=== PATIENT | male | born 1970 | race Caucasian/White ===

== ENCOUNTER 2017-04-09 17:41 | Inpatient (IN) | payer OTHER ==
[2017-04-09 18:22] VITALS: BMI 21.2
--- NOTE | 2017-04-09 21:21 | HP ---
<Olga Tang - Last Filed: 04/10/17 02:14> COWS - Scale Resting Pulse: 0= [place] 80 or Below Sweatin=Flushed/Facial Moisture Restless Observation: 1= Difficult to Sit Still Pupil Size: 1= Pupils >than Normal Bone or Joint Aches: 2= Severe Diffuse Aches Runny Nose/ Eye Tearin= Runny Nose/Eyes GI Upset > 30mins: 2= Nausea/Diarrhea (Diarrhea x 7) Tremor Observation: 2= Slight Tremor Visible Yawning Observation: 1= 1-2x During Session Anxiety or Irritability: 2=Irritable/Anxious Goose Flesh Skin: 3=Piloerection COWS Score: 18 Admission ROS S - HPI Chief Complaint: Opioid withdrawal symptoms Allergies/Adverse Reactions: Allergies Allergy/AdvReac Type Severity Reaction Status Date / Time Fish Containing Products Allergy Intermediate Hives Verified 04/09/17 22:49 No Known Drug Allergies Allergy Verified 04/10/17 12:05 History of Present Illness: 46 years old male with a long history of heroin and cocaine dependence is admitted to detox. Patient has been in previous detox and reports 12 months of sobriety. Patient was referred and court mandated by CASES. He has a medical history of Hep C, anxiety, depression and PTSD. He appears very dehydrated with poor skin turgor and mucous membrane. Patient reports very poor appetite and significant weight loss. Denies suicidal ideation at this time. Exam Limitations: No Limitations - Ebola screening Have you traveled outside of the country in the last 21 days: No Have you had contact with anyone from an Ebola affected area: No Have you been sick,other than usual withdrawal symptoms: No Do you have a fever: No - Review of Systems Constitutional: Chills, Loss of Appetite, Malaise, Night Sweats, Changes in sleep, Weakness, Unintentional Wgt. Loss, Other EENT: reports: Blurred Vision, Sinus Pressure Respiratory: reports: Cough Cardiac: reports: No Symptoms Reported GI: reports: Diarrhea (x 7), Poor Appetite, Poor Fluid Intake, Abdominal cramping : reports: No Symptoms Reported Musculoskeletal: reports: Back Pain, Joint Pain, Muscle Pain, Muscle Weakness, Neck Pain Integumentary: reports: Bruising, Dryness, Flushing, Sweating Neuro: reports: Tingling, Tremors, Weakness Endocrine: reports: Flushing, Unexplained Weight Loss Hematology: reports: No Symptoms Reported Psychiatric: reports: Agitated, Anxious, Depressed Other Systems: Reviewed and Negative Patient History - Patient Medical History Hx Anemia: No Hx Asthma: No Hx Chronic Obstructive Pulmonary Disease (COPD): No Hx Cancer: No Hx Cardiac Disorders: No Hx Congestive Heart Failure: No Hx Hypertension: No Hx Hypercholesterolemia: No Hx Pacemaker: No HX Cerebrovascular Accident: No Hx Seizures: No Hx Dementia: No Hx Diabetes: No Hx Gastrointestinal Disorders: No Hx Liver Disease: Yes (Hep C treated) Hx Genitourinary Disorders: No Hx Sexually Transmitted Disorders: No Hx Renal Disease (ESRD): No Hx Thyroid Disease: No Hx Human Immunodeficiency Virus (HIV): No Hx Hepatitis C: Yes (Treated with Harvoni) Hx Depression: Yes Hx Suicide Attempt: No (Denies suicidal ideation) Hx Bipolar Disorder: No Hx Schizophrenia: No - Patient Surgical History Past Surgical History: Yes Hx Neurologic Surgery: No Hx Cataract Extraction: No Hx Cardiac Surgery: No Hx Lung Surgery: No Hx Abdominal Surgery: No Hx Appendectomy: No Hx Cholecystectomy: No Hx Genitourinary Surgery: No Hx Orthopedic Surgery: Yes (Right femur surgery) Other Surgical History: Left thigh skin graft Anesthesia Reaction: No - PPD History Previous Implant?: Yes ([facility]) Documented Results: Negative w/o proof Implanted On Prior [facility] Admission?: No PPD to be Administered?: Yes - Reproductive History Patient is a Female of Child Bearing Age (11 -55 yrs old): No (Male) - Smoking Cessation Smoking history: Current every day smoker Have you smoked in the past 12 months: Yes Aproximately how many cigarettes per day: 10 Hx Chewing Tobacco Use: No Initiated information on smoking cessation: Yes 'Breaking Loose' booklet given: 04/09/17 - Substance & Tx. History Hx Alcohol Use: No Hx Substance Use: Yes Substance Use Type: Cocaine, Heroin, Marijuana Hx Substance Use Treatment: Yes ([facility]) - Substances Abused Heroin Route: Injection Frequency: Daily Amount used: 10 bags daily Age of first use: 30 Date of Last Use: 04/08/17 Cocaine Route: Injection Frequency: Daily Amount used: $100 Age of first use: 13 Date of Last Use: 04/08/17 Marijuana/Hashish Route: Smoking Frequency: Daily Amount used: $10 Age of first use: 8 Date of Last Use: 04/08/17 Family Disease History - Family Disease History Family History: Denies Admission Physical Exam [facility] - Vital Signs Vital Signs: Vital Signs - 24 hr 04/09/17 18:10 Temperature 96.8 F L Pulse Rate 66 Respiratory 18 Rate Blood Pressure 130/90 - Physical General Appearance: Yes: Moderate Distress, Tremorous, Irritable, Sweating, Anxious HEENTM: Yes: EOMI, Normal Voice, DIDI Neck: Yes: No masses,lesions,Nodules, Supple, Trachea in good position Breast: Yes: Breast Exam Deferred Cardiology: Yes: Regular Rhythm, Regular Rate, S1, S2 Abdominal: Yes: Normal Bowel Sounds, Soft Genitourinary: Yes: Within Normal Limits Back: Yes: Within Normal Limits Musculoskeletal: Yes: Back pain, Muscle Pain, Muscle weakness Extremities: Yes: Tremors, Swelling (right hand from intravenous drug use, not infected) Neurological: Yes: Alert, Normal Mood/Affect, Normal Response Integumentary: Yes: Within Normal Limits, Track [place] (both hands and right neck ) Lymphatic: Yes: Within Normal Limits - Diagnostic (1) Opioid dependence with withdrawal Current Visit: Yes Status: Chronic (2) Cannabis dependence Current Visit: Yes Status: Chronic (3) Cocaine dependence Current Visit: Yes Status: Chronic (4) Anxiety Current Visit: Yes Status: Chronic (5) Nicotine dependence Current Visit: Yes Status: Chronic Cleared for Admission [facility] - Detox or Rehab [facility] Level of Care: Medically Managed Detox Regimen/Protocol: Methadone [facility] Breath Alcohol Content Breath Alcohol Content: 0 Urine Drug Screen - Results Drug Screen Negative: No Urine Drug Screen Results: THC-Marijuana, RUTHANN-Cocaine, OPI-Opiates <Karel Whitfield - Last Filed: 04/10/17 13:47> Admission Physical Exam [facility] - Vital Signs Vital Signs: Vital Signs - 24 hr 04/09/17 04/09/17 04/10/17 18:10 23:58 00:30 Temperature 96.8 F L 98.1 F Pulse Rate 66 64 Respiratory 18 18 18 Rate Blood Pressure 130/90 138/90 04/10/17 04/10/17 04/10/17 03:30 06:00 10:08 Temperature 97.2 F L 98.0 F Pulse Rate 61 92 H Respiratory 18 18 18 Rate Blood Pressure 108/53 147/82 - Diagnostic (1) Hepatitis C Current Visit: Yes Status: Acute (2) Depression Current Visit: Yes Status: Acute
[2017-04-09] MEDS ORDERED: guaiFENesin/D-METHORPHAN HB 10 ML UNIT-DOSE CUPS PO PRN (21:49)
[2017-04-09] MEDS ORDERED: METHADONE HCL 10 MG TABLET (FOR DETOX USE ONLY) PO ONE ×2 (21:49→23:00)
[2017-04-09] MEDS ORDERED: MENTHOL/PHENOL 1 EACH UD MM PRN (21:49)
[2017-04-09] MEDS ORDERED: ACETAMINOPHEN 325 MG TABLET (FP) PO PRN (21:49)
[2017-04-09] MEDS ORDERED: MAG HYDROX/AL HYDROX/SIMETH 30 ML UNIT-DOSE CUP PO PRN (21:49)
[2017-04-09] MEDS ORDERED: MAGNESIUM HYDROX 2400MG/30ML ORAL SUSPENSION 30 ML CUP PO PRN (21:49)
[2017-04-09] MEDS ORDERED: P-EPHED 60MG/TRIPROLIDI 2.5MG TABLET PO PRN (21:49)
[2017-04-09] MEDS ORDERED: LOPERAMIDE HCL 2 MG CAPSULE PO PRN (21:49)
[2017-04-09] MEDS ORDERED: MAGNESIUM CITRATE 300 ML BOTTLE PO PRN (21:49)
[2017-04-09] MEDS ORDERED: NICOTINE POLACRILEX 2 MG GUM BUC PRN (21:49)
[2017-04-09] MEDS: diazePAM 5 MG TABLET PO PRN (23:31)
[2017-04-09] MEDS: THIAMINE HCL 100 MG TABLET (FP) PO SCH (23:37)
[2017-04-10 01:57] LABS: URINE APPEARANCE CLEAR; URINE BILIRUBIN NEGATIVE (NEGATIVE); URINE BLOOD NEGATIVE (NEGATIVE); URINE COLOR YELLOW; URINE GLUCOSE (UA) NEGATIVE (NEGATIVE); URINE KETONE NEGATIVE (NEGATIVE); URINE LEUK ESTERASE NEGATIVE (NEGATIVE); URINE NITRITE NEGATIVE (NEGATIVE); URINE PROTEIN NEGATIVE (NEGATIVE)
[2017-04-10] MEDS: diazePAM 5 MG TABLET PO PRN ×3 (07:27→22:13)
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
[2017-04-10] MEDS ORDERED: METHADONE HCL 10 MG TABLET (FOR DETOX USE ONLY) PO ONE (10:00)
[2017-04-10 10:14] LABS: MCH 28.3 pg (25.7-33.7); MCHC 32.4 g/dl (32.0-35.9); MEAN CELL VOLUME 87.3 fl (80-96); MEAN PLT VOLUME 8.6 fl (7.5-11.1); PLATELET COUNT 257 K/MM3 (134-434); RDW 16.3 % (11.9-15.9); WHITE BLOOD COUNT 10.4 K/mm3 (4.0-10.0)
[2017-04-10 10:31] LABS: ALBUMIN 3.3 g/dl (3.4-5.0); ALK PHOS 126 U/L (45-117); ANION GAP 10 (8-16); BILIRUBIN,TOTAL 0.6 mg/dL (0.2-1.0); CALCIUM 8.7 mg/dL (8.5-10.1); CO2 25 mmol/L (21-32); CREATININE 0.9 mg/dL (0.7-1.3); GLUCOSE,RANDOM 110 mg/dL (74-106); SGOT/AST 9 U/L (15-37); SGPT/ALT 32 U/L (12-78); TOT PROT 6.4 g/dl (6.4-8.2)
[2017-04-10] MEDS: PRENATAL VITAMINS W/ FOLIC ACID TABLET (FP) PO SCH (10:45)
[2017-04-10] MEDS: NICOTINE 14 MG/24 HOURS TOPICAL PATCH TD SCH ×2 (10:48→10:50)
[2017-04-10 10:59] LABS: URINE LEUK ESTERASE Negative (NEGATIVE)
[2017-04-10 11:42] LABS: HIV 1 & 2 AB NEGATIVE; HIV 1 AGp24 NEGATIVE
[2017-04-10] MEDS: CYCLOBENZAPRINE HCL 10 MG TABLET (FP) PO PRN ×2 (11:53→22:15)
--- NOTE | 2017-04-10 11:53 | PN ---
BHS COWS - Scale Resting Pulse: 1= [place] 81-100 Sweatin=Flushed/Facial Moisture Restless Observation: 1= Difficult to Sit Still Pupil Size: 0= Normal to Room Light Bone or Joint Aches: 2= Severe Diffuse Aches Runny Nose/ Eye Tearin= Runny Nose/Eyes GI Upset > 30mins: 2= Nausea/Diarrhea Tremor Observation of Outstretched Hands: 2= Slight Tremor Visible Yawning Observation: 2= >3x During Session Anxiety or Irritability: 2=Irritable/Anxious Goose Flesh Skin: 3=Piloerection COWS Score: 19 BHS Progress Note (SOAP) Subjective: irritable agitation restless sweats shakes body aches interrupted sleep Objective: 04/10/17 11:52 Vital Signs Temperature 98.0 F 04/10/17 10:08 Pulse Rate 92 H 04/10/17 10:08 Respiratory Rate 18 04/10/17 10:08 Blood Pressure 147/82 04/10/17 10:08 O2 Sat by Pulse Oximetry (%) Laboratory Tests 04/09/17 04/10/17 04/10/17 23:25 07:00 07:00 WBC 10.4 H RBC 5.13 Hgb 14.5 Hct 44.8 MCV 87.3 MCH 28.3 MCHC 32.4 RDW 16.3 H Plt Count 257 MPV 8.6 Sodium 142 Potassium 3.8 Chloride 107 Carbon Dioxide 25 Anion Gap 10 BUN 19 H Creatinine 0.9 Creat Clearance w eGFR > 60 Random Glucose 110 H Calcium 8.7 Total Bilirubin 0.6 AST 9 L ALT 32 Alkaline Phosphatase 126 H Total Protein 6.4 Albumin 3.3 L Urine Color Yellow Urine Appearance Clear Urine pH 6.0 Ur Specific [place] 1.017 Urine Protein Negative Urine Glucose (UA) Negative Urine Ketones Negative Urine Blood Negative Urine Nitrite Negative Urine Bilirubin Negative Urine Urobilinogen 2.0 Ur Leukocyte Esterase Negative RPR Titer HIV 1&2 Antibody Screen HIV P24 Antigen 04/10/17 04/10/17 07:00 07:00 WBC RBC Hgb Hct MCV MCH MCHC RDW Plt Count MPV Sodium Potassium Chloride Carbon Dioxide Anion Gap BUN Creatinine Creat Clearance w eGFR Random Glucose Calcium Total Bilirubin AST ALT Alkaline Phosphatase Total Protein Albumin Urine Color Urine Appearance Urine pH Ur Specific [place] Urine Protein Urine Glucose (UA) Urine Ketones Urine Blood Urine Nitrite Urine Bilirubin Urine Urobilinogen Ur Leukocyte Esterase RPR Titer Nonreactive HIV 1&2 Antibody Screen Negative HIV P24 Antigen Negative aaox3 ambulating no acute distress Assessment: 04/10/17 11:52 withdrawal sx Plan: continue detox increase fluids flexiril prn clonidine 0.1mg x one
[2017-04-10] MEDS ORDERED: PNEUMOCOCCAL 23 VACCINE 0.5 ML VIAL IM ONE (12:00)
[2017-04-10] MEDS ORDERED: PNEUMOC 13-VAL CONJ-DIP CRM/PF 0.5 ML DISP.SYRIN IM ONE (12:00)
[2017-04-10] MEDS ORDERED: cloNIDine HCL 0.1 MG TABLET PO ONE (12:30)
--- NOTE | 2017-04-10 13:58 | EKG ---
Test Reason : Blood Pressure : / mmHG Vent. Rate : 059 BPM Atrial Rate : 059 BPM P-R Int : 150 ms QRS Dur : 104 ms QT Int : 410 ms P-R-T Axes : 054 029 046 degrees QTc Int : 405 ms SINUS BRADYCARDIA WITH MARKED SINUS ARRHYTHMIA POSSIBLE LEFT ATRIAL ENLARGEMENT INCOMPLETE RIGHT BUNDLE BRANCH BLOCK NO PREVIOUS ECGS AVAILABLE Confirmed by CEASAR TO MD ([id number]) on 04/10/2017 1:58:13 PM Referred By: Confirmed By:CEASAR TO MD
[2017-04-10] MEDS: MIRTAZAPINE 15 MG TABLET (FP) PO SCH (22:13)
[2017-04-10] MEDS: THIAMINE HCL 100 MG TABLET (FP) PO SCH (22:13)
[2017-04-11] MEDS ORDERED: METHADONE HCL 5 MG TABLET (FOR DETOX USE ONLY) PO ONE (10:00)
[2017-04-11] MEDS: PRENATAL VITAMINS W/ FOLIC ACID TABLET (FP) PO SCH (10:10)
[2017-04-11] MEDS: NICOTINE 14 MG/24 HOURS TOPICAL PATCH TD SCH (10:10)
[2017-04-11] MEDS: diazePAM 5 MG TABLET PO PRN ×2 (17:35→22:00)
[2017-04-11] MEDS: CYCLOBENZAPRINE HCL 10 MG TABLET (FP) PO PRN (17:35)
--- NOTE | 2017-04-11 18:54 | PN ---
BHS COWS - Scale Resting Pulse: 1= [place] 81-100 Sweatin=Flushed/Facial Moisture Restless Observation: 1= Difficult to Sit Still Pupil Size: 0= Normal to Room Light Bone or Joint Aches: 2= Severe Diffuse Aches Runny Nose/ Eye Tearin= Runny Nose/Eyes GI Upset > 30mins: 2= Nausea/Diarrhea Tremor Observation of Outstretched Hands: 2= Slight Tremor Visible Yawning Observation: 1= 1-2x During Session Anxiety or Irritability: 2=Irritable/Anxious Goose Flesh Skin: 0=Smooth Skin COWS Score: 15 S Progress Note (SOAP) Subjective: Sweating,interrupted sleep,restless Objective: 04/11/17 18:54 Vital Signs - 8 hr 04/11/17 15:37 Temperature 97.9 F Pulse Rate 100 H Respiratory 20 Rate Blood Pressure 131/85 Laboratory Tests 04/09/17 04/10/17 04/10/17 23:25 07:00 07:00 WBC 10.4 H RBC 5.13 Hgb 14.5 Hct 44.8 MCV 87.3 MCH 28.3 MCHC 32.4 RDW 16.3 H Plt Count 257 MPV 8.6 Sodium 142 Potassium 3.8 Chloride 107 Carbon Dioxide 25 Anion Gap 10 BUN 19 H Creatinine 0.9 Creat Clearance w eGFR > 60 Random Glucose 110 H Calcium 8.7 Total Bilirubin 0.6 AST 9 L ALT 32 Alkaline Phosphatase 126 H Total Protein 6.4 Albumin 3.3 L Urine Color Yellow Urine Appearance Clear Urine pH 6.0 Ur Specific [place] 1.017 Urine Protein Negative Urine Glucose (UA) Negative Urine Ketones Negative Urine Blood Negative Urine Nitrite Negative Urine Bilirubin Negative Urine Urobilinogen 2.0 Ur Leukocyte Esterase Negative RPR Titer HIV 1&2 Antibody Screen HIV P24 Antigen 04/10/17 04/10/17 07:00 07:00 WBC RBC Hgb Hct MCV MCH MCHC RDW Plt Count MPV Sodium Potassium Chloride Carbon Dioxide Anion Gap BUN Creatinine Creat Clearance w eGFR Random Glucose Calcium Total Bilirubin AST ALT Alkaline Phosphatase Total Protein Albumin Urine Color Urine Appearance Urine pH Ur Specific [place] Urine Protein Urine Glucose (UA) Urine Ketones Urine Blood Urine Nitrite Urine Bilirubin Urine Urobilinogen Ur Leukocyte Esterase RPR Titer Nonreactive HIV 1&2 Antibody Screen Negative HIV P24 Antigen Negative labs noted Assessment: 12/23/17 18:54 Withdrawal sx. Plan: Continue detox
[2017-04-11] MEDS: THIAMINE HCL 100 MG TABLET (FP) PO SCH (22:00)
[2017-04-11] MEDS: MIRTAZAPINE 15 MG TABLET (FP) PO SCH (22:00)
[2017-04-12] MEDS: diazePAM 5 MG TABLET PO PRN ×3 (06:04→14:41)
[2017-04-12] MEDS: CYCLOBENZAPRINE HCL 10 MG TABLET (FP) PO PRN ×4 (06:04→22:07)
[2017-04-12] MEDS ORDERED: METHADONE HCL 5 MG TABLET (FOR DETOX USE ONLY) PO ONE (10:00)
--- NOTE | 2017-04-12 10:13 | PN ---
BHS Progress Note (SOAP) Subjective: Sweating,interrupted sleep,restless Objective: 04/12/17 10:12 Vital Signs - 8 hr 04/12/17 04/12/17 03:30 06:59 Temperature 96.3 F L Pulse Rate 75 Respiratory 18 18 Rate Blood Pressure 119/79 Laboratory Tests 04/09/17 04/10/17 04/10/17 23:25 07:00 07:00 WBC 10.4 H RBC 5.13 Hgb 14.5 Hct 44.8 MCV 87.3 MCH 28.3 MCHC 32.4 RDW 16.3 H Plt Count 257 MPV 8.6 Sodium 142 Potassium 3.8 Chloride 107 Carbon Dioxide 25 Anion Gap 10 BUN 19 H Creatinine 0.9 Creat Clearance w eGFR > 60 Random Glucose 110 H Calcium 8.7 Total Bilirubin 0.6 AST 9 L ALT 32 Alkaline Phosphatase 126 H Total Protein 6.4 Albumin 3.3 L Urine Color Yellow Urine Appearance Clear Urine pH 6.0 Ur Specific [place] 1.017 Urine Protein Negative Urine Glucose (UA) Negative Urine Ketones Negative Urine Blood Negative Urine Nitrite Negative Urine Bilirubin Negative Urine Urobilinogen 2.0 Ur Leukocyte Esterase Negative RPR Titer HIV 1&2 Antibody Screen HIV P24 Antigen 04/10/17 04/10/17 07:00 07:00 WBC RBC Hgb Hct MCV MCH MCHC RDW Plt Count MPV Sodium Potassium Chloride Carbon Dioxide Anion Gap BUN Creatinine Creat Clearance w eGFR Random Glucose Calcium Total Bilirubin AST ALT Alkaline Phosphatase Total Protein Albumin Urine Color Urine Appearance Urine pH Ur Specific [place] Urine Protein Urine Glucose (UA) Urine Ketones Urine Blood Urine Nitrite Urine Bilirubin Urine Urobilinogen Ur Leukocyte Esterase RPR Titer Nonreactive HIV 1&2 Antibody Screen Negative HIV P24 Antigen Negative labs noted Assessment: 04/12/17 10:12 Withdrawal sx. Plan: Continue detox
[2017-04-12] MEDS ORDERED: AMOX TR/POT CLAV 875MG/125MG TABLETS (FP) PO ONE (11:41)
[2017-04-12] MEDS: PRENATAL VITAMINS W/ FOLIC ACID TABLET (FP) PO SCH (11:48)
[2017-04-12] MEDS: NICOTINE 14 MG/24 HOURS TOPICAL PATCH TD SCH (11:49)
[2017-04-12] MEDS: BACITRACIN 15 GM TUBE TOPICAL OINTMENT TP SCH ×3 (14:41→22:37)
[2017-04-12] MEDS: AMOX TR/POT CLAV 875MG/125MG TABLETS (FP) PO SCH (17:09)
--- NOTE | 2017-04-12 17:16 | EKG ---
Test Reason : Blood Pressure : / mmHG Vent. Rate : 071 BPM Atrial Rate : 071 BPM P-R Int : 140 ms QRS Dur : 100 ms QT Int : 376 ms P-R-T Axes : 052 -06 053 degrees QTc Int : 408 ms NORMAL SINUS RHYTHM INCOMPLETE RIGHT BUNDLE BRANCH BLOCK BORDERLINE ECG WHEN COMPARED WITH ECG OF 09-APR-2017 23:40, NO SIGNIFICANT CHANGE WAS FOUND Confirmed by BINTA VILLAR MD ([id number]) on 04/12/2017 5:16:03 PM Referred By: Confirmed By:BINTA VILLAR MD
[2017-04-12] MEDS: MIRTAZAPINE 15 MG TABLET (FP) PO SCH (22:07)
[2017-04-12] MEDS: THIAMINE HCL 100 MG TABLET (FP) PO SCH (22:07)
[2017-04-13] MEDS: CYCLOBENZAPRINE HCL 10 MG TABLET (FP) PO PRN ×3 (05:39→22:06)
[2017-04-13] MEDS: AMOX TR/POT CLAV 875MG/125MG TABLETS (FP) PO SCH ×2 (08:06→18:13)
--- NOTE | 2017-04-13 09:43 | PN ---
BHS Progress Note (SOAP) Subjective: interrupted sleep, anxious Objective: 04/13/17 09:38 Vital Signs Temperature 97.8 F 04/13/17 09:33 Pulse Rate 101 H 04/13/17 09:33 Respiratory Rate 20 04/13/17 09:33 Blood Pressure 111/76 04/13/17 09:33 O2 Sat by Pulse Oximetry (%) Laboratory Tests 04/09/17 04/10/17 04/10/17 23:25 07:00 07:00 WBC 10.4 H RBC 5.13 Hgb 14.5 Hct 44.8 MCV 87.3 MCH 28.3 MCHC 32.4 RDW 16.3 H Plt Count 257 MPV 8.6 Sodium 142 Potassium 3.8 Chloride 107 Carbon Dioxide 25 Anion Gap 10 BUN 19 H Creatinine 0.9 Creat Clearance w eGFR > 60 Random Glucose 110 H Calcium 8.7 Total Bilirubin 0.6 AST 9 L ALT 32 Alkaline Phosphatase 126 H Total Protein 6.4 Albumin 3.3 L Urine Color Yellow Urine Appearance Clear Urine pH 6.0 Ur Specific [place] 1.017 Urine Protein Negative Urine Glucose (UA) Negative Urine Ketones Negative Urine Blood Negative Urine Nitrite Negative Urine Bilirubin Negative Urine Urobilinogen 2.0 Ur Leukocyte Esterase Negative RPR Titer HIV 1&2 Antibody Screen HIV P24 Antigen 04/10/17 04/10/17 07:00 07:00 WBC RBC Hgb Hct MCV MCH MCHC RDW Plt Count MPV Sodium Potassium Chloride Carbon Dioxide Anion Gap BUN Creatinine Creat Clearance w eGFR Random Glucose Calcium Total Bilirubin AST ALT Alkaline Phosphatase Total Protein Albumin Urine Color Urine Appearance Urine pH Ur Specific [place] Urine Protein Urine Glucose (UA) Urine Ketones Urine Blood Urine Nitrite Urine Bilirubin Urine Urobilinogen Ur Leukocyte Esterase RPR Titer Nonreactive HIV 1&2 Antibody Screen Negative HIV P24 Antigen Negative pt aox3 in nad. ambulating, 04/13/17 09:41 Assessment: 04/13/17 09:41 withdrawal sx,s anxious Plan: cont. detox increase fluids cont .flexeril vistaril 25mg q 4h/prn d/c in am
[2017-04-13] MEDS ORDERED: METHADONE HCL 10 MG TABLET (FOR DETOX USE ONLY) PO ONE (10:00)
[2017-04-13] MEDS: PRENATAL VITAMINS W/ FOLIC ACID TABLET (FP) PO SCH (10:11)
[2017-04-13] MEDS: BACITRACIN 15 GM TUBE TOPICAL OINTMENT TP SCH ×4 (10:14→22:06)
[2017-04-13] MEDS ORDERED: BACITRACIN 0.9 GM PACKET ONE (10:14)
[2017-04-13] MEDS: NICOTINE 14 MG/24 HOURS TOPICAL PATCH TD SCH (10:15)
[2017-04-13] MEDS: IBUPROFEN 400 MG TABLET (FP) PO PRN ×2 (13:15→22:07)
[2017-04-13] MEDS: MIRTAZAPINE 15 MG TABLET (FP) PO SCH (22:07)
[2017-04-13] MEDS: hydrOXYzine PAMOATE 25 MG CAPSULE (FP) PO PRN (22:08)
[2017-04-13] MEDS: THIAMINE HCL 100 MG TABLET (FP) PO SCH (22:08)
[2017-04-14] MEDS: CYCLOBENZAPRINE HCL 10 MG TABLET (FP) PO PRN (05:33)
[2017-04-14] MEDS: hydrOXYzine PAMOATE 25 MG CAPSULE (FP) PO PRN ×2 (05:33→10:41)
[2017-04-14] MEDS ORDERED: METHADONE HCL 5 MG TABLET (FOR DETOX USE ONLY) PO ONE (06:00)
[2017-04-14] MEDS: AMOX TR/POT CLAV 875MG/125MG TABLETS (FP) PO SCH (08:22)
[2017-04-14] MEDS: PRENATAL VITAMINS W/ FOLIC ACID TABLET (FP) PO SCH (10:02)
[2017-04-14] MEDS: NICOTINE 14 MG/24 HOURS TOPICAL PATCH TD SCH (10:04)
[2017-04-14] MEDS ORDERED: BACITRACIN 0.9 GM PACKET ONE (10:06)
[2017-04-14] MEDS: BACITRACIN 15 GM TUBE TOPICAL OINTMENT TP SCH (10:06)
[2017-04-14 11:12] VITALS: BP 100/67; PULSE 96; TEMP 97.7
--- NOTE | 2017-04-14 16:06 | DS ---
[facility] Detox Discharge Summary Admission Date: 04/09/17 Discharge Date: 04/14/17 - History Present History: Cannabis Dependence, Cocaine Dependence, Opioid Dependence Pertinent Past History: Hepatitis C - Physical Exam Results Vital Signs: Vital Signs Temperature 97.7 F 04/14/17 11:11 Pulse Rate 96 H 04/14/17 11:11 Respiratory Rate 20 04/14/17 11:11 Blood Pressure 100/67 04/14/17 11:11 O2 Sat by Pulse Oximetry (%) Pertinent Admission Physical Exam Findings: Withdrawal symptoms Laboratory Tests 04/09/17 04/10/17 04/10/17 23:25 07:00 07:00 WBC 10.4 H RBC 5.13 Hgb 14.5 Hct 44.8 MCV 87.3 MCH 28.3 MCHC 32.4 RDW 16.3 H Plt Count 257 MPV 8.6 Sodium 142 Potassium 3.8 Chloride 107 Carbon Dioxide 25 Anion Gap 10 BUN 19 H Creatinine 0.9 Creat Clearance w eGFR > 60 Random Glucose 110 H Calcium 8.7 Total Bilirubin 0.6 AST 9 L ALT 32 Alkaline Phosphatase 126 H Total Protein 6.4 Albumin 3.3 L Urine Color Yellow Urine Appearance Clear Urine pH 6.0 Ur Specific [place] 1.017 Urine Protein Negative Urine Glucose (UA) Negative Urine Ketones Negative Urine Blood Negative Urine Nitrite Negative Urine Bilirubin Negative Urine Urobilinogen 2.0 Ur Leukocyte Esterase Negative RPR Titer HIV 1&2 Antibody Screen HIV P24 Antigen 04/10/17 04/10/17 07:00 07:00 WBC RBC Hgb Hct MCV MCH MCHC RDW Plt Count MPV Sodium Potassium Chloride Carbon Dioxide Anion Gap BUN Creatinine Creat Clearance w eGFR Random Glucose Calcium Total Bilirubin AST ALT Alkaline Phosphatase Total Protein Albumin Urine Color Urine Appearance Urine pH Ur Specific [place] Urine Protein Urine Glucose (UA) Urine Ketones Urine Blood Urine Nitrite Urine Bilirubin Urine Urobilinogen Ur Leukocyte Esterase RPR Titer Nonreactive HIV 1&2 Antibody Screen Negative HIV P24 Antigen Negative Labs noted - Treatment Hospital Course: Detox Protocol Followed, Detoxed Safely, Responded well, Discharged Condition Good - Medication Discharge Medications: Ambulatory Orders NK [No Known Home Medication] 04/09/17 - Diagnosis (1) Depression Status: Chronic (2) Anxiety Status: Chronic (3) Cannabis dependence Status: Chronic (4) Cocaine dependence Status: Chronic Qualifiers: Substance use status: uncomplicated Qualified Code(s): F14.20 - Cocaine dependence, uncomplicated (5) Hepatitis C Status: Chronic (6) Nicotine dependence Status: Chronic Qualifiers: Nicotine product type: cigarettes Substance use status: uncomplicated Qualified Code(s): F17.210 - Nicotine dependence, cigarettes, uncomplicated (7) Opioid dependence with withdrawal Status: Acute - AMA Did Patient Leave Against Medical Advice: No (F/U with PCP within 1 week)
== END 2017-04-14 12:30 | disposition home or self-care (01) | DRG 773 ==
LOC: YASAS 17:41 → Y6N 22:47
PROVIDERS: ADMIT Internal Medicine; ATTEND Internal Medicine
PROC: HZ2ZZZZ Detoxification Services for Substance Abuse Treatment (ICD-10-PCS; principal; 2017-04-09)
DX: F11.23 Opioid dependence with withdrawal (principal); F14.20 Cocaine dependence, uncomplicated; F12.20 Cannabis dependence, uncomplicated; F17.210 Nicotine dependence, cigarettes, uncomplicated; F19.24 Other psychoactive substance dependence with psychoactive substance-induced mood disorder; F41.9 Anxiety disorder, unspecified; F32.9 Major depressive disorder, single episode, unspecified; G47.00 Insomnia, unspecified; Z59.0 Homelessness
CPT/HCPCS: 36415; 80053; 81003; 85027; 86593; 87389; 90732; 93005; 93010; G0009

== ENCOUNTER 2017-04-14 12:47 | Inpatient (IN) | payer OTHER ==
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
[2017-04-14] MEDS ORDERED: LOPERAMIDE HCL 2 MG CAPSULE PO PRN (15:27)
[2017-04-14] MEDS ORDERED: ACETAMINOPHEN 325 MG TABLET (FP) PO PRN (15:27)
[2017-04-14] MEDS ORDERED: MENTHOL/PHENOL 1 EACH UD MM PRN (15:27)
[2017-04-14] MEDS ORDERED: MAGNESIUM HYDROX 2400MG/30ML ORAL SUSPENSION 30 ML CUP PO PRN (15:27)
[2017-04-14] MEDS ORDERED: MAGNESIUM CITRATE 300 ML BOTTLE PO PRN (15:27)
[2017-04-14] MEDS ORDERED: guaiFENesin/D-METHORPHAN HB 10 ML UNIT-DOSE CUPS PO PRN (15:27)
[2017-04-14] MEDS ORDERED: MAG HYDROX/AL HYDROX/SIMETH 30 ML UNIT-DOSE CUP PO PRN (15:27)
--- NOTE | 2017-04-14 15:27 | HP ---
[facility] Rehab Assess/Revision - Admission History Admitted to Rehab from: [facility] [place] Date of Admission to Rehab: 04/14/17 - Vital signs Vital Signs: VSS chart reviewed - Findings Detox History & Physical reviewed: Yes Concur with findings: Yes Inpatient Rehab Admission - Initial Determination Are CD services needed?: Yes Free of communicable disease: Yes Not in need of hospitalization: Yes - Rehab Admission Criteria Comorbidities: Yes Lacks judgement: Yes Patient is meeting Inpatient Rehab admission criteria:: Yes
[2017-04-14] MEDS: THIAMINE HCL 100 MG TABLET (FP) PO SCH (21:37)
[2017-04-14] MEDS: GABAPENTIN 100 MG CAPSULE (FP) PO SCH (21:37)
[2017-04-14] MEDS: MIRTAZAPINE 30 MG TABLET (FP) PO SCH (21:37)
[2017-04-14] MEDS: IBUPROFEN 400 MG TABLET (FP) PO PRN (21:38)
[2017-04-15] MEDS: GABAPENTIN 100 MG CAPSULE (FP) PO SCH ×3 (06:53→21:29)
[2017-04-15] MEDS: AMOX TR/POT CLAV 875MG/125MG TABLETS (FP) PO SCH ×2 (07:31→17:19)
[2017-04-15] MEDS: NICOTINE 14 MG/24 HOURS TOPICAL PATCH TD SCH (10:15)
[2017-04-15] MEDS: PRENATAL VITAMINS W/ FOLIC ACID TABLET (FP) PO SCH (10:15)
[2017-04-15] MEDS: hydrOXYzine PAMOATE 50 MG CAPSULE (FP) PO PRN ×2 (10:16→21:29)
[2017-04-15] MEDS: CYCLOBENZAPRINE HCL 5 MG TABLET PO SCH ×2 (15:00→21:29)
[2017-04-15] MEDS: MIRTAZAPINE 30 MG TABLET (FP) PO SCH (21:29)
[2017-04-15] MEDS: THIAMINE HCL 100 MG TABLET (FP) PO SCH (21:29)
[2017-04-16] MEDS: GABAPENTIN 100 MG CAPSULE (FP) PO SCH ×3 (06:10→21:28)
[2017-04-16] MEDS: CYCLOBENZAPRINE HCL 5 MG TABLET PO SCH ×3 (06:10→21:28)
[2017-04-16] MEDS: AMOX TR/POT CLAV 875MG/125MG TABLETS (FP) PO SCH ×2 (07:19→16:56)
[2017-04-16] MEDS: NICOTINE 14 MG/24 HOURS TOPICAL PATCH TD SCH (10:56)
[2017-04-16] MEDS: PRENATAL VITAMINS W/ FOLIC ACID TABLET (FP) PO SCH (10:56)
[2017-04-16] MEDS: hydrOXYzine PAMOATE 50 MG CAPSULE (FP) PO PRN (10:57)
[2017-04-16] MEDS: MIRTAZAPINE 30 MG TABLET (FP) PO SCH (21:28)
[2017-04-16] MEDS: THIAMINE HCL 100 MG TABLET (FP) PO SCH (21:28)
[2017-04-17] MEDS: GABAPENTIN 100 MG CAPSULE (FP) PO SCH (06:28)
[2017-04-17] MEDS: IBUPROFEN 400 MG TABLET (FP) PO PRN (06:28)
[2017-04-17] MEDS: CYCLOBENZAPRINE HCL 5 MG TABLET PO SCH ×3 (06:28→21:22)
[2017-04-17] MEDS: AMOX TR/POT CLAV 875MG/125MG TABLETS (FP) PO SCH ×2 (07:44→16:55)
[2017-04-17] MEDS: NICOTINE 14 MG/24 HOURS TOPICAL PATCH TD SCH (10:04)
[2017-04-17] MEDS: PRENATAL VITAMINS W/ FOLIC ACID TABLET (FP) PO SCH (10:04)
[2017-04-17] MEDS: QUEtiapine FUMARATE 25 MG TABLET (FP) PO PRN ×2 (10:26→14:14)
--- NOTE | 2017-04-17 11:06 | PN ---
Psychiatric Progress Note Vital Signs: Vital Signs Period Temp Pulse Resp BP Sys/Sánchez Pulse Ox Last 24 Hr 97.3 F 95 16-18 123/86 Date of Session: 04/17/17 Chief Complaint:: "mood swings" HPI: Patient is addressing opioid, cocaine, nicotine dependence comorbid PTSD, anciety disorder. ROS: Hep C. Current Medications: Active Medications Generic Name Dose Route Start Last Admin Trade Name Freq PRN Reason Stop Dose Admin Acetaminophen 650 mg 04/14/17 15:27 Tylenol - PO Q4H PRN FEVER OR PAIN Al Hydroxide/Mg Hydroxide 30 ml 04/14/17 15:27 Mylanta Oral Suspension - PO Q6H PRN DYSPEPSIA Amoxicillin/Clavulanate Potassium 1 tab 04/15/17 08:00 04/17/17 07:44 Augmentin - 875mg Tablet PO 04/20/17 07:59 1 tab BID@0800,1730 ROBERT Administration Cyclobenzaprine HCl 5 mg 04/15/17 14:00 04/17/17 06:28 Cyclobenzaprine Hcl PO 5 mg TID ROBERT Administration Eucalyptus/Menthol/Phenol/Sorbitol 1 each 04/14/17 15:27 Cepastat Lozenge - MM Q4H PRN SORE THROAT Gabapentin 300 mg 04/17/17 14:00 Neurontin - PO TID ROBERT Guaifenesin 10 ml 04/14/17 15:27 Robitussin Dm - PO Q6H PRN COUGH Hydroxyzine Pamoate 50 mg 04/14/17 15:27 04/16/17 10:57 Vistaril - PO 50 mg Q4H PRN Administration AGITATION Ibuprofen 400 mg 04/14/17 15:27 04/17/17 06:28 Motrin - PO 400 mg Q6H PRN Administration PAIN Loperamide HCl 4 mg 04/14/17 15:27 Imodium - PO Q6H PRN DIARRHEA Magnesium Citrate 300 ml 04/14/17 15:27 Citroma - PO Q48H PRN CONSTIPATION Magnesium Hydroxide 30 ml 04/14/17 15:27 Milk Of Magnesia - PO DAILY PRN CONSTIPATION Mirtazapine 30 mg 04/14/17 22:00 04/16/17 21:28 Remeron - PO 30 mg HS ROBERT Administration Nicotine 14 mg 04/15/17 10:00 04/17/17 10:04 Nicoderm Patch - TD 14 mg DAILY ROBERT Administration Nicotine Polacrilex 2 mg 04/14/17 15:27 Nicorette Gum - BUC Q2H PRN NICOTINE REPLACEMENT RX Multivit/Folic Acid/Iron 1 tab 04/15/17 10:00 04/17/17 10:04 Vitamins (Sjr) - PO 1 tab DAILY ROBERT Administration Pseudoephedrine/Triprolidine 1 combo 04/14/17 15:27 Actifed - PO TID PRN NASAL CONGESTION Quetiapine Fumarate 50 mg 04/17/17 22:00 Seroquel - PO HS ROBERT Quetiapine Fumarate 25 mg 04/17/17 10:11 04/17/17 10:26 Seroquel - PO 25 mg Q4H PRN Administration AGITATION Thiamine HCl 100 mg 04/14/17 22:00 04/16/17 21:28 Vitamin B1 - PO 100 mg HS ROBERT Administration Current Side Effect: No Lab tests ordered: No Lab tests reviewed: Yes Provider note:: Patient reports he feels very anxious, restless, mood swings, unable to sleep, racing thoughts and urges to leave treatment to get high, but he understands the negative consequences of his addiction,(having legal issues, his treatment is mandated by the court for stealing products from [employer]) reports that he is willing to take seroquel "even I'v gained weight". reviewed medications with the patient, side-effects /benefits discussed, will increase Gabapentin 300 mg po tid, add Seroquel 50 mg po hs and 25 mg po q 4hrs prn, psychoeducation and supportive therapy provided. Total face to face time:: 35 Mental Status Exam - Mental Status Exam Alert and Oriented to: Time, Place, Person Cognitive Function: Good Patient Appearance: Well Groomed Mood: Anxious, Irritable Affect: Mood Congruent Patient Behavior: Appropriate, Cooperative Speech Pattern: Clear, Appropriate Voice Loudness: Normal Thought Process: Intact, Goal Oriented Thought Disorder: Not Present Hallucinations: Denies Suicidal Ideation: Denies Homicidal Ideation: Denies Insight/Judgement: Fair Sleep: Fair Appetite: Fair Muscle strength/Tone: Normal Gait/Station: Normal Psychiatric Treatment Plan - Problem List (1) Opioid dependence Current Visit: Yes (2) PTSD (post-traumatic stress disorder) Current Visit: Yes (3) Anxiety disorder Current Visit: Yes (4) Cocaine dependence Current Visit: No Qualifiers: Substance use status: uncomplicated Qualified Code(s): F14.20 - Cocaine dependence, uncomplicated (5) Nicotine dependence Current Visit: No Qualifiers: Nicotine product type: cigarettes Substance use status: uncomplicated Qualified Code(s): F17.210 - Nicotine dependence, cigarettes, uncomplicated
[2017-04-17] MEDS: GABAPENTIN 300 MG CAPSULE (FP) PO SCH ×2 (14:13→21:22)
[2017-04-17] MEDS: MIRTAZAPINE 30 MG TABLET (FP) PO SCH (21:22)
[2017-04-17] MEDS: THIAMINE HCL 100 MG TABLET (FP) PO SCH (21:22)
[2017-04-17] MEDS: QUEtiapine FUMARATE 50 MG TABLET PO SCH (21:23)
[2017-04-18] MEDS: GABAPENTIN 300 MG CAPSULE (FP) PO SCH ×3 (06:01→21:25)
[2017-04-18] MEDS: CYCLOBENZAPRINE HCL 5 MG TABLET PO SCH ×3 (06:01→21:26)
[2017-04-18] MEDS: QUEtiapine FUMARATE 25 MG TABLET (FP) PO PRN ×3 (06:44→17:54)
[2017-04-18] MEDS: AMOX TR/POT CLAV 875MG/125MG TABLETS (FP) PO SCH ×2 (07:35→16:46)
[2017-04-18] MEDS: PRENATAL VITAMINS W/ FOLIC ACID TABLET (FP) PO SCH (10:00)
[2017-04-18] MEDS: NICOTINE 14 MG/24 HOURS TOPICAL PATCH TD SCH (10:01)
[2017-04-18] MEDS: BACITRACIN 15 GM TUBE TOPICAL OINTMENT TP SCH ×2 (12:06→21:26)
[2017-04-18] MEDS: IBUPROFEN 400 MG TABLET (FP) PO PRN (12:07)
[2017-04-18] MEDS: NICOTINE POLACRILEX 2 MG GUM BUC PRN (14:07)
[2017-04-18] MEDS: THIAMINE HCL 100 MG TABLET (FP) PO SCH (21:25)
[2017-04-18] MEDS: MIRTAZAPINE 30 MG TABLET (FP) PO SCH (21:25)
[2017-04-18] MEDS: QUEtiapine FUMARATE 50 MG TABLET PO SCH (21:26)
[2017-04-19] MEDS: GABAPENTIN 300 MG CAPSULE (FP) PO SCH ×3 (06:12→21:34)
[2017-04-19] MEDS: CYCLOBENZAPRINE HCL 5 MG TABLET PO SCH ×3 (06:12→21:34)
[2017-04-19] MEDS: QUEtiapine FUMARATE 25 MG TABLET (FP) PO PRN ×3 (06:13→19:35)
[2017-04-19] MEDS: AMOX TR/POT CLAV 875MG/125MG TABLETS (FP) PO SCH ×2 (07:38→17:03)
[2017-04-19] MEDS: PRENATAL VITAMINS W/ FOLIC ACID TABLET (FP) PO SCH (09:39)
[2017-04-19] MEDS: NICOTINE 14 MG/24 HOURS TOPICAL PATCH TD SCH (09:40)
[2017-04-19] MEDS: BACITRACIN 15 GM TUBE TOPICAL OINTMENT TP SCH ×2 (09:40→21:34)
[2017-04-19] MEDS: IBUPROFEN 400 MG TABLET (FP) PO PRN (09:41)
[2017-04-19] MEDS: COLLOIDAL OATMEAL 1 BAR EACH TP PRN (12:02)
[2017-04-19] MEDS: MIRTAZAPINE 30 MG TABLET (FP) PO SCH (21:34)
[2017-04-19] MEDS: QUEtiapine FUMARATE 50 MG TABLET PO SCH (21:34)
[2017-04-19] MEDS: THIAMINE HCL 100 MG TABLET (FP) PO SCH (21:34)
[2017-04-20] MEDS: GABAPENTIN 300 MG CAPSULE (FP) PO SCH ×3 (06:53→21:27)
[2017-04-20] MEDS: CYCLOBENZAPRINE HCL 5 MG TABLET PO SCH ×3 (06:53→21:27)
[2017-04-20] MEDS: QUEtiapine FUMARATE 25 MG TABLET (FP) PO PRN ×3 (06:54→16:39)
[2017-04-20] MEDS: PRENATAL VITAMINS W/ FOLIC ACID TABLET (FP) PO SCH (09:46)
[2017-04-20] MEDS: BACITRACIN 15 GM TUBE TOPICAL OINTMENT TP SCH ×2 (09:47→21:27)
[2017-04-20] MEDS: NICOTINE 14 MG/24 HOURS TOPICAL PATCH TD SCH (09:47)
[2017-04-20] MEDS: MIRTAZAPINE 30 MG TABLET (FP) PO SCH (21:27)
[2017-04-20] MEDS: THIAMINE HCL 100 MG TABLET (FP) PO SCH (21:27)
[2017-04-20] MEDS: QUEtiapine FUMARATE 50 MG TABLET PO SCH (21:27)
[2017-04-21] MEDS: GABAPENTIN 300 MG CAPSULE (FP) PO SCH ×3 (06:36→21:39)
[2017-04-21] MEDS: CYCLOBENZAPRINE HCL 5 MG TABLET PO SCH ×3 (06:36→21:39)
[2017-04-21] MEDS: BACITRACIN 15 GM TUBE TOPICAL OINTMENT TP SCH ×2 (10:10→21:40)
[2017-04-21] MEDS: PRENATAL VITAMINS W/ FOLIC ACID TABLET (FP) PO SCH (10:10)
[2017-04-21] MEDS: NICOTINE 14 MG/24 HOURS TOPICAL PATCH TD SCH (10:10)
--- NOTE | 2017-04-21 14:02 | PN ---
Psychiatric Progress Note Vital Signs: Vital Signs Period Temp Pulse Resp BP Sys/Sánchez Pulse Ox Last 24 Hr 98.0 F 95 18-18 129/87 Date of Session: 04/21/17 Chief Complaint:: progress update HPI: Patient is addressing opioid, cocaine, nicotine dependence comorbid PTSD, anxiety disorder. ROS: Hep C. Current Medications: Active Medications Generic Name Dose Route Start Last Admin Trade Name Freq PRN Reason Stop Dose Admin Acetaminophen 650 mg 04/14/17 15:27 Tylenol - PO Q4H PRN FEVER OR PAIN Al Hydroxide/Mg Hydroxide 30 ml 04/14/17 15:27 Mylanta Oral Suspension - PO Q6H PRN DYSPEPSIA Bacitracin 1 applic 04/18/17 10:00 04/21/17 10:10 Bacitracin - TP Not Given BID ROBERT Colloidal Oatmeal 1 applic 04/19/17 10:59 04/19/17 12:02 Aveeno Soap - TP 1 applic DAILY PRN Administration HYGEINE Cyclobenzaprine HCl 5 mg 04/15/17 14:00 04/21/17 06:36 Cyclobenzaprine Hcl PO Not Given TID [facility] Eucalyptus/Menthol/Phenol/Sorbitol 1 each 04/14/17 15:27 Cepastat Lozenge - MM Q4H PRN SORE THROAT Gabapentin 600 mg 04/21/17 13:56 Neurontin - PO TID ROBERT Guaifenesin 10 ml 04/14/17 15:27 Robitussin Dm - PO Q6H PRN COUGH Hydroxyzine Pamoate 50 mg 04/14/17 15:27 04/16/17 10:57 Vistaril - PO 50 mg Q4H PRN Administration AGITATION Ibuprofen 400 mg 04/14/17 15:27 04/19/17 09:41 Motrin - PO 400 mg Q6H PRN Administration PAIN Loperamide HCl 4 mg 04/14/17 15:27 Imodium - PO Q6H PRN DIARRHEA Magnesium Citrate 300 ml 04/14/17 15:27 Citroma - PO Q48H PRN CONSTIPATION Magnesium Hydroxide 30 ml 04/14/17 15:27 Milk Of Magnesia - PO DAILY PRN CONSTIPATION Mirtazapine 30 mg 04/14/17 22:00 04/20/17 21:27 Remeron - PO 30 mg HS ROBERT Administration Nicotine 14 mg 04/15/17 10:00 04/21/17 10:10 Nicoderm Patch - TD Not Given DAILY ROBERT Nicotine Polacrilex 2 mg 04/14/17 15:27 04/18/17 14:07 Nicorette Gum - BUC 2 mg Q2H PRN Administration NICOTINE REPLACEMENT RX Multivit/Folic Acid/Iron 1 tab 04/15/17 10:00 04/21/17 10:10 Vitamins (Sjr) - PO Not Given DAILY ROBERT Pseudoephedrine/Triprolidine 1 combo 04/14/17 15:27 Actifed - PO TID PRN NASAL CONGESTION Quetiapine Fumarate 25 mg 04/17/17 10:11 04/20/17 16:39 Seroquel - PO 25 mg Q4H PRN Administration AGITATION Thiamine HCl 100 mg 04/14/17 22:00 04/20/17 21:27 Vitamin B1 - PO 100 mg HS ROBERT Administration Current Side Effect: No Lab tests ordered: No Lab tests reviewed: Yes Provider note:: Patient was seen today, he continues to c/o mood swings irritablity and sleeping difficulty, states that seroquel not effective and he refused to take it for the past 2 days, reports that was on higher dosage of gabapentin in the past and thinks was effective, reviwed current medications with the patient will d/c seroquel, increase gabapentin 600 mg po tid and add belsomra 10 mg po hs, psychoeducation and support provided, contineu to monitor progress. Total face to face time:: 25 Mental Status Exam - Mental Status Exam Alert and Oriented to: Time, Place, Person Cognitive Function: Good Patient Appearance: Well Groomed Mood: Anxious, Irritable Affect: Appropriate, Mood Congruent, Labile Patient Behavior: Appropriate, Cooperative Speech Pattern: Clear, Appropriate Voice Loudness: Normal Thought Process: Intact, Goal Oriented Thought Disorder: Not Present Hallucinations: Denies Suicidal Ideation: Denies Homicidal Ideation: Denies Insight/Judgement: Fair Sleep: Poorly, Difficulty falling asleep Appetite: Fair Muscle strength/Tone: Normal Gait/Station: Normal Psychiatric Treatment Plan - Problem List (1) Opioid dependence Current Visit: Yes (2) PTSD (post-traumatic stress disorder) Current Visit: Yes (3) Anxiety disorder Current Visit: Yes (4) Cocaine dependence Current Visit: No Qualifiers: Substance use status: uncomplicated Qualified Code(s): F14.20 - Cocaine dependence, uncomplicated (5) Nicotine dependence Current Visit: No Qualifiers: Nicotine product type: cigarettes Substance use status: uncomplicated Qualified Code(s): F17.210 - Nicotine dependence, cigarettes, uncomplicated
[2017-04-21] MEDS: MIRTAZAPINE 30 MG TABLET (FP) PO SCH (21:39)
[2017-04-21] MEDS: THIAMINE HCL 100 MG TABLET (FP) PO SCH (21:39)
[2017-04-21] MEDS: SUVOREXANT 10 MG TABLET PO SCH (21:39)
[2017-04-22] MEDS: CYCLOBENZAPRINE HCL 5 MG TABLET PO SCH ×3 (06:28→21:31)
[2017-04-22] MEDS: GABAPENTIN 300 MG CAPSULE (FP) PO SCH ×3 (06:28→21:31)
[2017-04-22] MEDS: PRENATAL VITAMINS W/ FOLIC ACID TABLET (FP) PO SCH (09:44)
[2017-04-22] MEDS: NICOTINE 14 MG/24 HOURS TOPICAL PATCH TD SCH (09:44)
[2017-04-22] MEDS: BACITRACIN 15 GM TUBE TOPICAL OINTMENT TP SCH ×2 (09:45→21:32)
[2017-04-22] MEDS: IBUPROFEN 400 MG TABLET (FP) PO PRN (09:45)
[2017-04-22] MEDS: THIAMINE HCL 100 MG TABLET (FP) PO SCH (21:31)
[2017-04-22] MEDS: MIRTAZAPINE 30 MG TABLET (FP) PO SCH (21:31)
[2017-04-22] MEDS: SUVOREXANT 10 MG TABLET PO SCH (21:32)
[2017-04-23] MEDS: GABAPENTIN 300 MG CAPSULE (FP) PO SCH ×3 (06:27→21:37)
[2017-04-23] MEDS: CYCLOBENZAPRINE HCL 5 MG TABLET PO SCH ×3 (06:27→21:37)
[2017-04-23] MEDS: BACITRACIN 15 GM TUBE TOPICAL OINTMENT TP SCH ×2 (09:47→22:35)
[2017-04-23] MEDS: NICOTINE 14 MG/24 HOURS TOPICAL PATCH TD SCH (09:47)
[2017-04-23] MEDS: PRENATAL VITAMINS W/ FOLIC ACID TABLET (FP) PO SCH (09:47)
--- NOTE | 2017-04-23 10:29 | PN ---
Psychiatric Progress Note Vital Signs: Vital Signs Period Temp Pulse Resp BP Sys/Sánchez Pulse Ox Last 24 Hr 97.9 F 74 18-18 123/83 Date of Session: 04/23/17 Chief Complaint:: "can't sleep" HPI: Patient is addressing opioid, cocaine, nicotine dependence comorbid PTSD, anxiety disorder. ROS: Hep C. Current Medications: Active Medications Generic Name Dose Route Start Last Admin Trade Name Freq PRN Reason Stop Dose Admin Acetaminophen 650 mg 04/14/17 15:27 Tylenol - PO Q4H PRN FEVER OR PAIN Al Hydroxide/Mg Hydroxide 30 ml 04/14/17 15:27 Mylanta Oral Suspension - PO Q6H PRN DYSPEPSIA Amitriptyline HCl 25 mg 04/23/17 22:00 Elavil - PO HS ROBERT Bacitracin 1 applic 04/18/17 10:00 04/23/17 09:47 Bacitracin - TP Not Given BID ROBERT Colloidal Oatmeal 1 applic 04/19/17 10:59 04/19/17 12:02 Aveeno Soap - TP 1 applic DAILY PRN Administration HYGEINE Cyclobenzaprine HCl 5 mg 04/15/17 14:00 04/23/17 06:27 Cyclobenzaprine Hcl PO 5 mg TID ROBERT Administration Eucalyptus/Menthol/Phenol/Sorbitol 1 each 04/14/17 15:27 Cepastat Lozenge - MM Q4H PRN SORE THROAT Gabapentin 600 mg 04/21/17 14:57 04/23/17 06:27 Neurontin - PO 600 mg TID ROBERT Administration Guaifenesin 10 ml 04/14/17 15:27 Robitussin Dm - PO Q6H PRN COUGH Hydroxyzine Pamoate 50 mg 04/14/17 15:27 04/16/17 10:57 Vistaril - PO 50 mg Q4H PRN Administration AGITATION Ibuprofen 400 mg 04/14/17 15:27 04/22/17 09:45 Motrin - PO 400 mg Q6H PRN Administration PAIN Loperamide HCl 4 mg 04/14/17 15:27 Imodium - PO Q6H PRN DIARRHEA Magnesium Citrate 300 ml 04/14/17 15:27 Citroma - PO Q48H PRN CONSTIPATION Magnesium Hydroxide 30 ml 04/14/17 15:27 Milk Of Magnesia - PO DAILY PRN CONSTIPATION Nicotine 14 mg 04/15/17 10:00 04/23/17 09:47 Nicoderm Patch - TD 14 mg DAILY ROBERT Administration Nicotine Polacrilex 2 mg 04/14/17 15:27 04/18/17 14:07 Nicorette Gum - BUC 2 mg Q2H PRN Administration NICOTINE REPLACEMENT RX Multivit/Folic Acid/Iron 1 tab 04/15/17 10:00 04/23/17 09:47 Vitamins (Sjr) - PO 1 tab DAILY ROBERT Administration Pseudoephedrine/Triprolidine 1 combo 04/14/17 15:27 Actifed - PO TID PRN NASAL CONGESTION Quetiapine Fumarate 25 mg 04/17/17 10:11 04/20/17 16:39 Seroquel - PO 25 mg Q4H PRN Administration AGITATION Thiamine HCl 100 mg 04/14/17 22:00 04/22/17 21:31 Vitamin B1 - PO 100 mg HS ROBERT Administration Current Side Effect: No Lab tests ordered: No Lab tests reviewed: Yes Provider note:: Patient reports that Belsomra partially effective, he sleeps till 3 am and then up the rest of the night, reports had a good responce to Elavil in the past, will d/c Remeron, add Elavil 25 mg po hs, side-effects and benefits discussed. Continue to monitor progress. Total face to face time:: 15 Mental Status Exam - Mental Status Exam Alert and Oriented to: Time, Place, Person Cognitive Function: Grossly Intact Patient Appearance: Well Groomed Mood: Hopeful Affect: Appropriate Patient Behavior: Appropriate, Cooperative Speech Pattern: Clear, Appropriate Voice Loudness: Normal Thought Process: Intact, Goal Oriented Thought Disorder: Not Present Hallucinations: Denies Suicidal Ideation: Denies Homicidal Ideation: Denies Insight/Judgement: Fair Sleep: Fair Appetite: Fair Muscle strength/Tone: Normal Gait/Station: Normal Psychiatric Treatment Plan - Problem List (1) Opioid dependence Current Visit: Yes (2) PTSD (post-traumatic stress disorder) Current Visit: Yes (3) Anxiety disorder Current Visit: Yes (4) Cocaine dependence Current Visit: No Qualifiers: Substance use status: uncomplicated Qualified Code(s): F14.20 - Cocaine dependence, uncomplicated (5) Nicotine dependence Current Visit: No Qualifiers: Nicotine product type: cigarettes Substance use status: uncomplicated Qualified Code(s): F17.210 - Nicotine dependence, cigarettes, uncomplicated
[2017-04-23] MEDS: THIAMINE HCL 100 MG TABLET (FP) PO SCH (21:37)
[2017-04-23] MEDS: SUVOREXANT 10 MG TABLET PO SCH (21:38)
[2017-04-23] MEDS ORDERED: AMITRIPTYLINE HCL 25 MG TABLET (FP) PO SCH (22:00)
[2017-04-24] MEDS: CYCLOBENZAPRINE HCL 5 MG TABLET PO SCH ×3 (06:21→21:34)
[2017-04-24] MEDS: GABAPENTIN 300 MG CAPSULE (FP) PO SCH ×3 (06:21→21:34)
[2017-04-24] MEDS: BACITRACIN 15 GM TUBE TOPICAL OINTMENT TP SCH ×2 (10:04→21:34)
[2017-04-24] MEDS: NICOTINE 14 MG/24 HOURS TOPICAL PATCH TD SCH (10:04)
[2017-04-24] MEDS: PRENATAL VITAMINS W/ FOLIC ACID TABLET (FP) PO SCH (10:04)
--- NOTE | 2017-04-24 11:16 | PN ---
[facility] Progress Note Note: patient continue to c/o insomnia, reports elavil partially effective, will increase to 50 mg po hs, continue to monitor progress.
[2017-04-24] MEDS: THIAMINE HCL 100 MG TABLET (FP) PO SCH (21:34)
[2017-04-24] MEDS: AMITRIPTYLINE HCL 25 MG TABLET (FP) PO SCH (21:35)
[2017-04-24] MEDS: QUEtiapine FUMARATE 25 MG TABLET (FP) PO PRN (23:59)
[2017-04-24] MEDS: hydrOXYzine PAMOATE 50 MG CAPSULE (FP) PO PRN (23:59)
[2017-04-25] MEDS: GABAPENTIN 300 MG CAPSULE (FP) PO SCH ×3 (06:54→21:35)
[2017-04-25] MEDS: CYCLOBENZAPRINE HCL 5 MG TABLET PO SCH ×3 (06:54→21:35)
[2017-04-25] MEDS: PRENATAL VITAMINS W/ FOLIC ACID TABLET (FP) PO SCH (10:17)
[2017-04-25] MEDS: QUEtiapine FUMARATE 25 MG TABLET (FP) PO PRN ×2 (10:17→21:35)
[2017-04-25] MEDS: NICOTINE 14 MG/24 HOURS TOPICAL PATCH TD SCH (10:17)
[2017-04-25] MEDS: hydrOXYzine PAMOATE 50 MG CAPSULE (FP) PO PRN ×2 (10:17→21:35)
[2017-04-25] MEDS: BACITRACIN 15 GM TUBE TOPICAL OINTMENT TP SCH ×2 (10:17→21:35)
[2017-04-25] MEDS: IBUPROFEN 400 MG TABLET (FP) PO PRN (14:14)
[2017-04-25] MEDS: NICOTINE POLACRILEX 2 MG GUM BUC PRN (14:15)
[2017-04-25] MEDS: THIAMINE HCL 100 MG TABLET (FP) PO SCH (21:35)
[2017-04-25] MEDS: AMITRIPTYLINE HCL 25 MG TABLET (FP) PO SCH (21:35)
[2017-04-26] MEDS: GABAPENTIN 300 MG CAPSULE (FP) PO SCH ×3 (07:12→21:25)
[2017-04-26] MEDS: CYCLOBENZAPRINE HCL 5 MG TABLET PO SCH ×3 (07:12→21:26)
[2017-04-26] MEDS: hydrOXYzine PAMOATE 50 MG CAPSULE (FP) PO PRN ×2 (07:14→21:26)
[2017-04-26] MEDS: QUEtiapine FUMARATE 25 MG TABLET (FP) PO PRN ×2 (07:14→21:26)
[2017-04-26] MEDS: BACITRACIN 15 GM TUBE TOPICAL OINTMENT TP SCH ×2 (09:57→21:26)
[2017-04-26] MEDS: PRENATAL VITAMINS W/ FOLIC ACID TABLET (FP) PO SCH (09:57)
[2017-04-26] MEDS: NICOTINE 14 MG/24 HOURS TOPICAL PATCH TD SCH (09:57)
[2017-04-26] MEDS: NICOTINE POLACRILEX 2 MG GUM BUC PRN (14:37)
[2017-04-26] MEDS: THIAMINE HCL 100 MG TABLET (FP) PO SCH (21:25)
[2017-04-26] MEDS: AMITRIPTYLINE HCL 25 MG TABLET (FP) PO SCH (21:26)
[2017-04-27] MEDS: CYCLOBENZAPRINE HCL 5 MG TABLET PO SCH ×3 (06:51→21:39)
[2017-04-27] MEDS: GABAPENTIN 300 MG CAPSULE (FP) PO SCH ×3 (06:51→21:39)
[2017-04-27] MEDS: QUEtiapine FUMARATE 25 MG TABLET (FP) PO PRN ×2 (10:10→21:40)
[2017-04-27] MEDS: PRENATAL VITAMINS W/ FOLIC ACID TABLET (FP) PO SCH (10:10)
[2017-04-27] MEDS: BACITRACIN 15 GM TUBE TOPICAL OINTMENT TP SCH ×2 (10:10→21:41)
[2017-04-27] MEDS: hydrOXYzine PAMOATE 50 MG CAPSULE (FP) PO PRN ×2 (10:10→21:40)
[2017-04-27] MEDS: NICOTINE 14 MG/24 HOURS TOPICAL PATCH TD SCH (10:10)
[2017-04-27] MEDS: AMITRIPTYLINE HCL 25 MG TABLET (FP) PO SCH (21:39)
[2017-04-27] MEDS: THIAMINE HCL 100 MG TABLET (FP) PO SCH (21:41)
[2017-04-28] MEDS: CYCLOBENZAPRINE HCL 5 MG TABLET PO SCH ×3 (06:42→21:48)
[2017-04-28] MEDS: GABAPENTIN 300 MG CAPSULE (FP) PO SCH ×3 (06:42→21:48)
[2017-04-28] MEDS: NICOTINE 14 MG/24 HOURS TOPICAL PATCH TD SCH (10:05)
[2017-04-28] MEDS: PRENATAL VITAMINS W/ FOLIC ACID TABLET (FP) PO SCH (10:05)
[2017-04-28] MEDS: BACITRACIN 15 GM TUBE TOPICAL OINTMENT TP SCH ×2 (10:06→21:48)
[2017-04-28] MEDS: QUEtiapine FUMARATE 25 MG TABLET (FP) PO PRN (10:07)
[2017-04-28] MEDS: hydrOXYzine PAMOATE 50 MG CAPSULE (FP) PO PRN (10:07)
--- NOTE | 2017-04-28 11:28 | PN ---
Psychiatric Progress Note Vital Signs: Vital Signs Period Temp Pulse Resp BP Sys/Sánchez Pulse Ox Last 24 Hr 97.6 F 90 18-20 111/83 Date of Session: 04/28/17 Chief Complaint:: "anxiety" HPI: Patient is addressing opioid, cocaine, nicotine dependence comorbid PTSD, anxiety disorder. ROS: Hep C. Current Medications: Active Medications Generic Name Dose Route Start Last Admin Trade Name Freq PRN Reason Stop Dose Admin Acetaminophen 650 mg 04/14/17 15:27 Tylenol - PO Q4H PRN FEVER OR PAIN Al Hydroxide/Mg Hydroxide 30 ml 04/14/17 15:27 Mylanta Oral Suspension - PO Q6H PRN DYSPEPSIA Amitriptyline HCl 75 mg 04/28/17 11:20 Elavil - PO HS ROBERT Bacitracin 1 applic 04/18/17 10:00 04/28/17 10:06 Bacitracin - TP 1 applic BID ROBERT Administration Buspirone HCl 5 mg 04/28/17 14:00 Buspar - PO TID ROBERT Colloidal Oatmeal 1 applic 04/19/17 10:59 04/19/17 12:02 Aveeno Soap - TP 1 applic DAILY PRN Administration HYGEINE Cyclobenzaprine HCl 5 mg 04/15/17 14:00 04/28/17 06:42 Cyclobenzaprine Hcl PO 5 mg TID ROBERT Administration Eucalyptus/Menthol/Phenol/Sorbitol 1 each 04/14/17 15:27 Cepastat Lozenge - MM Q4H PRN SORE THROAT Gabapentin 600 mg 04/21/17 14:57 04/28/17 06:42 Neurontin - PO 600 mg TID ROBERT Administration Guaifenesin 10 ml 04/14/17 15:27 Robitussin Dm - PO Q6H PRN COUGH Hydroxyzine Pamoate 50 mg 04/14/17 15:27 04/28/17 10:07 Vistaril - PO 50 mg Q4H PRN Administration AGITATION Ibuprofen 400 mg 04/14/17 15:27 04/25/17 14:14 Motrin - PO 400 mg Q6H PRN Administration PAIN Loperamide HCl 4 mg 04/14/17 15:27 Imodium - PO Q6H PRN DIARRHEA Magnesium Citrate 300 ml 04/14/17 15:27 Citroma - PO Q48H PRN CONSTIPATION Magnesium Hydroxide 30 ml 04/14/17 15:27 Milk Of Magnesia - PO DAILY PRN CONSTIPATION Nicotine 14 mg 04/15/17 10:00 04/28/17 10:05 Nicoderm Patch - TD 14 mg DAILY ROBERT Administration Nicotine Polacrilex 2 mg 04/14/17 15:27 04/26/17 14:37 Nicorette Gum - BUC 2 mg Q2H PRN Administration NICOTINE REPLACEMENT RX Multivit/Folic Acid/Iron 1 tab 04/15/17 10:00 04/28/17 10:05 Vitamins (Sjr) - PO 1 tab DAILY ROBERT Administration Pseudoephedrine/Triprolidine 1 combo 04/14/17 15:27 Actifed - PO TID PRN NASAL CONGESTION Quetiapine Fumarate 25 mg 04/17/17 10:11 04/28/17 10:07 Seroquel - PO 25 mg Q4H PRN Administration AGITATION Thiamine HCl 100 mg 04/14/17 22:00 04/27/17 21:41 Vitamin B1 - PO 100 mg HS ROBERT Administration Medication(s) Change(s): increase Elavil 75 mg po hs add Buspar 5 mg po tid. Current Side Effect: No Lab tests ordered: No Lab tests reviewed: Yes Provider note:: Patient continues to c/o anxiety, insomnia, "I have a high toleratnce", reports he feels anxious all day, his sleep is interrupted and unfreshful, he reports fatiqued during day time, patient was recommended to start Buspar 5 mg po tid(side-effects/benefits discussed), patient agreed with careplan, continue to monitor progress. Total face to face time:: 15 Mental Status Exam - Mental Status Exam Alert and Oriented to: Time, Place Cognitive Function: Good Patient Appearance: Well Groomed Mood: Anxious Affect: Appropriate, Mood Congruent Patient Behavior: Appropriate, Cooperative Speech Pattern: Clear, Appropriate Voice Loudness: Normal Thought Process: Goal Oriented Thought Disorder: Not Present Hallucinations: Denies Suicidal Ideation: Denies Homicidal Ideation: Denies Insight/Judgement: Fair Sleep: Difficulty falling asleep Appetite: Fair Muscle strength/Tone: Normal Gait/Station: Normal Psychiatric Treatment Plan - Problem List (1) Opioid dependence Current Visit: Yes (2) PTSD (post-traumatic stress disorder) Current Visit: Yes (3) Anxiety disorder Current Visit: Yes (4) Cocaine dependence Current Visit: No Qualifiers: Substance use status: uncomplicated Qualified Code(s): F14.20 - Cocaine dependence, uncomplicated (5) Nicotine dependence Current Visit: No Qualifiers: Nicotine product type: cigarettes Substance use status: uncomplicated Qualified Code(s): F17.210 - Nicotine dependence, cigarettes, uncomplicated
[2017-04-28] MEDS: IBUPROFEN 400 MG TABLET (FP) PO PRN (12:25)
[2017-04-28] MEDS: busPIRone HCL 5 MG TABLET PO SCH ×2 (14:03→21:48)
[2017-04-28] MEDS: AMITRIPTYLINE HCL 25 MG TABLET (FP) PO SCH (21:48)
[2017-04-28] MEDS: THIAMINE HCL 100 MG TABLET (FP) PO SCH (21:48)
[2017-04-29] MEDS: CYCLOBENZAPRINE HCL 5 MG TABLET PO SCH ×3 (05:48→21:35)
[2017-04-29] MEDS: GABAPENTIN 300 MG CAPSULE (FP) PO SCH ×3 (05:48→21:35)
[2017-04-29] MEDS: busPIRone HCL 5 MG TABLET PO SCH ×3 (05:48→21:35)
[2017-04-29] MEDS: IBUPROFEN 400 MG TABLET (FP) PO PRN (05:50)
[2017-04-29] MEDS: PRENATAL VITAMINS W/ FOLIC ACID TABLET (FP) PO SCH (10:03)
[2017-04-29] MEDS: BACITRACIN 15 GM TUBE TOPICAL OINTMENT TP SCH ×2 (10:03→21:36)
[2017-04-29] MEDS: NICOTINE 14 MG/24 HOURS TOPICAL PATCH TD SCH (10:03)
[2017-04-29] MEDS: THIAMINE HCL 100 MG TABLET (FP) PO SCH (21:35)
[2017-04-29] MEDS: AMITRIPTYLINE HCL 25 MG TABLET (FP) PO SCH (21:35)
[2017-04-29] MEDS: P-EPHED 60MG/TRIPROLIDI 2.5MG TABLET PO PRN (21:37)
[2017-04-30] MEDS: IBUPROFEN 400 MG TABLET (FP) PO PRN (06:47)
[2017-04-30] MEDS: GABAPENTIN 300 MG CAPSULE (FP) PO SCH ×3 (06:47→21:24)
[2017-04-30] MEDS: busPIRone HCL 5 MG TABLET PO SCH ×3 (06:47→21:24)
[2017-04-30] MEDS: CYCLOBENZAPRINE HCL 5 MG TABLET PO SCH ×3 (06:47→21:24)
[2017-04-30] MEDS: P-EPHED 60MG/TRIPROLIDI 2.5MG TABLET PO PRN (06:48)
[2017-04-30] MEDS: PRENATAL VITAMINS W/ FOLIC ACID TABLET (FP) PO SCH (10:11)
[2017-04-30] MEDS: NICOTINE 14 MG/24 HOURS TOPICAL PATCH TD SCH (10:11)
[2017-04-30] MEDS: BACITRACIN 15 GM TUBE TOPICAL OINTMENT TP SCH ×2 (10:12→21:25)
[2017-04-30] MEDS: AMITRIPTYLINE HCL 25 MG TABLET (FP) PO SCH (21:23)
[2017-04-30] MEDS: hydrOXYzine PAMOATE 50 MG CAPSULE (FP) PO PRN (21:23)
[2017-04-30] MEDS: QUEtiapine FUMARATE 25 MG TABLET (FP) PO PRN (21:23)
[2017-04-30] MEDS: THIAMINE HCL 100 MG TABLET (FP) PO SCH (21:24)
[2017-05-01] MEDS: busPIRone HCL 5 MG TABLET PO SCH ×3 (06:41→21:46)
[2017-05-01] MEDS: CYCLOBENZAPRINE HCL 5 MG TABLET PO SCH ×3 (06:41→21:46)
[2017-05-01] MEDS: GABAPENTIN 300 MG CAPSULE (FP) PO SCH ×3 (06:41→21:46)
[2017-05-01] MEDS: QUEtiapine FUMARATE 25 MG TABLET (FP) PO PRN ×2 (06:42→21:46)
[2017-05-01] MEDS: hydrOXYzine PAMOATE 50 MG CAPSULE (FP) PO PRN ×2 (06:43→21:47)
[2017-05-01] MEDS: PRENATAL VITAMINS W/ FOLIC ACID TABLET (FP) PO SCH (10:05)
[2017-05-01] MEDS: NICOTINE 14 MG/24 HOURS TOPICAL PATCH TD SCH (10:05)
[2017-05-01] MEDS: BACITRACIN 15 GM TUBE TOPICAL OINTMENT TP SCH ×2 (10:05→21:46)
[2017-05-01] MEDS: IBUPROFEN 400 MG TABLET (FP) PO PRN ×2 (10:06→17:56)
[2017-05-01] MEDS: P-EPHED 60MG/TRIPROLIDI 2.5MG TABLET PO PRN (17:56)
[2017-05-01] MEDS: THIAMINE HCL 100 MG TABLET (FP) PO SCH (21:46)
[2017-05-01] MEDS: AMITRIPTYLINE HCL 25 MG TABLET (FP) PO SCH (21:46)
[2017-05-02] MEDS: P-EPHED 60MG/TRIPROLIDI 2.5MG TABLET PO PRN (07:13)
[2017-05-02] MEDS: busPIRone HCL 5 MG TABLET PO SCH ×3 (07:14→21:27)
[2017-05-02] MEDS: CYCLOBENZAPRINE HCL 5 MG TABLET PO SCH ×3 (07:14→21:27)
[2017-05-02] MEDS: GABAPENTIN 300 MG CAPSULE (FP) PO SCH ×3 (07:14→21:26)
[2017-05-02] MEDS: IBUPROFEN 400 MG TABLET (FP) PO PRN (07:14)
[2017-05-02] MEDS: NICOTINE 14 MG/24 HOURS TOPICAL PATCH TD SCH (09:55)
[2017-05-02] MEDS: PRENATAL VITAMINS W/ FOLIC ACID TABLET (FP) PO SCH (09:55)
[2017-05-02] MEDS: BACITRACIN 15 GM TUBE TOPICAL OINTMENT TP SCH ×2 (09:55→21:27)
[2017-05-02] MEDS: hydrOXYzine PAMOATE 50 MG CAPSULE (FP) PO PRN ×2 (13:22→21:26)
[2017-05-02] MEDS: QUEtiapine FUMARATE 25 MG TABLET (FP) PO PRN (21:26)
[2017-05-02] MEDS: AMITRIPTYLINE HCL 25 MG TABLET (FP) PO SCH (21:27)
[2017-05-02] MEDS: THIAMINE HCL 100 MG TABLET (FP) PO SCH (21:27)
[2017-05-03] MEDS: CYCLOBENZAPRINE HCL 5 MG TABLET PO SCH ×3 (06:49→21:26)
[2017-05-03] MEDS: busPIRone HCL 5 MG TABLET PO SCH ×3 (06:49→21:25)
[2017-05-03] MEDS: GABAPENTIN 300 MG CAPSULE (FP) PO SCH ×3 (06:49→21:25)
[2017-05-03] MEDS: COLLOIDAL OATMEAL 1 BAR EACH TP PRN (08:47)
[2017-05-03] MEDS: PRENATAL VITAMINS W/ FOLIC ACID TABLET (FP) PO SCH (09:41)
[2017-05-03] MEDS: NICOTINE 14 MG/24 HOURS TOPICAL PATCH TD SCH (09:41)
[2017-05-03] MEDS: BACITRACIN 15 GM TUBE TOPICAL OINTMENT TP SCH ×2 (09:41→21:26)
[2017-05-03] MEDS: P-EPHED 60MG/TRIPROLIDI 2.5MG TABLET PO PRN (10:43)
[2017-05-03] MEDS: AMITRIPTYLINE HCL 25 MG TABLET (FP) PO SCH (21:24)
[2017-05-03] MEDS: hydrOXYzine PAMOATE 50 MG CAPSULE (FP) PO PRN (21:25)
[2017-05-03] MEDS: THIAMINE HCL 100 MG TABLET (FP) PO SCH (21:25)
[2017-05-03] MEDS: QUEtiapine FUMARATE 25 MG TABLET (FP) PO PRN (21:25)
[2017-05-04] MEDS: GABAPENTIN 300 MG CAPSULE (FP) PO SCH ×3 (06:55→21:20)
[2017-05-04] MEDS: busPIRone HCL 5 MG TABLET PO SCH ×3 (07:02→21:20)
[2017-05-04] MEDS: QUEtiapine FUMARATE 25 MG TABLET (FP) PO PRN ×2 (07:02→21:19)
[2017-05-04] MEDS: CYCLOBENZAPRINE HCL 5 MG TABLET PO SCH ×3 (07:02→21:19)
[2017-05-04] MEDS: BACITRACIN 15 GM TUBE TOPICAL OINTMENT TP SCH ×2 (10:01→21:20)
[2017-05-04] MEDS: NICOTINE 14 MG/24 HOURS TOPICAL PATCH TD SCH (10:01)
[2017-05-04] MEDS: PRENATAL VITAMINS W/ FOLIC ACID TABLET (FP) PO SCH (10:02)
[2017-05-04] MEDS: LORATADINE 10 MG TABLET PO SCH (14:11)
[2017-05-04] MEDS: FLUTICASONE PROP 0.05% 16 GM NASAL SPRAY NS SCH ×2 (14:13→21:21)
[2017-05-04] MEDS: THIAMINE HCL 100 MG TABLET (FP) PO SCH (21:19)
[2017-05-04] MEDS: hydrOXYzine PAMOATE 50 MG CAPSULE (FP) PO PRN (21:19)
[2017-05-04] MEDS: AMITRIPTYLINE HCL 25 MG TABLET (FP) PO SCH (21:20)
[2017-05-05] MEDS: busPIRone HCL 5 MG TABLET PO SCH ×3 (06:46→21:35)
[2017-05-05] MEDS: GABAPENTIN 300 MG CAPSULE (FP) PO SCH ×3 (06:47→21:35)
[2017-05-05] MEDS: CYCLOBENZAPRINE HCL 5 MG TABLET PO SCH ×3 (06:47→21:35)
--- NOTE | 2017-05-05 08:39 | PN ---
S Progress Note Note: PT WAS SEEN 05/04/17 FOR C/O NASAL CONGESTION,HEAD CONGESTION, AND BREATHING DISCOMFORT. REPORTS HX OF NASAL PROBLEMS IN THE PAST. DENIES SOB. ALERT O X 3 LUNGS:CLEAR TO A/P PLAN:[facility] [employer] DIRECTED FLONASE AND CLARITIN ORDERED
[2017-05-05] MEDS ORDERED: ALBUTEROL SO4 18 GM HFA INHALER IH PRN (09:44)
[2017-05-05] MEDS: FLUTICASONE PROP 0.05% 16 GM NASAL SPRAY NS SCH ×2 (10:26→21:37)
[2017-05-05] MEDS: PRENATAL VITAMINS W/ FOLIC ACID TABLET (FP) PO SCH (10:26)
[2017-05-05] MEDS: LORATADINE 10 MG TABLET PO SCH (10:26)
[2017-05-05] MEDS: NICOTINE 14 MG/24 HOURS TOPICAL PATCH TD SCH (10:27)
[2017-05-05] MEDS: BACITRACIN 15 GM TUBE TOPICAL OINTMENT TP SCH ×2 (10:27→21:38)
[2017-05-05] MEDS: hydrOXYzine PAMOATE 50 MG CAPSULE (FP) PO PRN (21:34)
[2017-05-05] MEDS: QUEtiapine FUMARATE 25 MG TABLET (FP) PO PRN (21:35)
[2017-05-05] MEDS: AMITRIPTYLINE HCL 25 MG TABLET (FP) PO SCH (21:35)
[2017-05-05] MEDS: THIAMINE HCL 100 MG TABLET (FP) PO SCH (21:35)
[2017-05-05] MEDS: SODIUM CHLORIDE NASAL SPRAY 44 ML BOTTLE NS PRN (21:37)
[2017-05-06] MEDS: CYCLOBENZAPRINE HCL 5 MG TABLET PO SCH ×3 (06:27→21:30)
[2017-05-06] MEDS: GABAPENTIN 300 MG CAPSULE (FP) PO SCH ×3 (06:27→21:30)
[2017-05-06] MEDS: busPIRone HCL 5 MG TABLET PO SCH ×3 (06:27→21:30)
[2017-05-06] MEDS: BACITRACIN 15 GM TUBE TOPICAL OINTMENT TP SCH ×2 (09:48→21:33)
[2017-05-06] MEDS: LORATADINE 10 MG TABLET PO SCH (09:48)
[2017-05-06] MEDS: PRENATAL VITAMINS W/ FOLIC ACID TABLET (FP) PO SCH (09:48)
[2017-05-06] MEDS: NICOTINE 14 MG/24 HOURS TOPICAL PATCH TD SCH (09:49)
[2017-05-06] MEDS: SODIUM CHLORIDE NASAL SPRAY 44 ML BOTTLE NS PRN ×2 (09:49→21:33)
[2017-05-06] MEDS: FLUTICASONE PROP 0.05% 16 GM NASAL SPRAY NS SCH ×2 (09:49→21:32)
[2017-05-06] MEDS: THIAMINE HCL 100 MG TABLET (FP) PO SCH (21:30)
[2017-05-06] MEDS: AMITRIPTYLINE HCL 25 MG TABLET (FP) PO SCH (21:30)
[2017-05-06] MEDS: QUEtiapine FUMARATE 25 MG TABLET (FP) PO PRN (21:32)
[2017-05-06] MEDS: hydrOXYzine PAMOATE 50 MG CAPSULE (FP) PO PRN (21:32)
[2017-05-07] MEDS: CYCLOBENZAPRINE HCL 5 MG TABLET PO SCH ×3 (06:57→21:33)
[2017-05-07] MEDS: GABAPENTIN 300 MG CAPSULE (FP) PO SCH ×3 (06:57→21:32)
[2017-05-07] MEDS: busPIRone HCL 5 MG TABLET PO SCH ×3 (06:58→21:33)
[2017-05-07] MEDS: SODIUM CHLORIDE NASAL SPRAY 44 ML BOTTLE NS PRN (10:12)
[2017-05-07] MEDS: LORATADINE 10 MG TABLET PO SCH (10:12)
[2017-05-07] MEDS: QUEtiapine FUMARATE 25 MG TABLET (FP) PO PRN ×2 (10:12→21:33)
[2017-05-07] MEDS: PRENATAL VITAMINS W/ FOLIC ACID TABLET (FP) PO SCH (10:12)
[2017-05-07] MEDS: BACITRACIN 15 GM TUBE TOPICAL OINTMENT TP SCH ×2 (10:12→21:34)
[2017-05-07] MEDS: hydrOXYzine PAMOATE 50 MG CAPSULE (FP) PO PRN ×2 (10:12→21:33)
[2017-05-07] MEDS: NICOTINE 14 MG/24 HOURS TOPICAL PATCH TD SCH (10:13)
[2017-05-07] MEDS: FLUTICASONE PROP 0.05% 16 GM NASAL SPRAY NS SCH ×2 (10:14→21:34)
[2017-05-07] MEDS: THIAMINE HCL 100 MG TABLET (FP) PO SCH (21:32)
[2017-05-07] MEDS: AMITRIPTYLINE HCL 25 MG TABLET (FP) PO SCH (21:33)
[2017-05-08] MEDS: CYCLOBENZAPRINE HCL 5 MG TABLET PO SCH ×3 (07:09→23:06)
[2017-05-08] MEDS: busPIRone HCL 5 MG TABLET PO SCH ×4 (07:09→23:52)
[2017-05-08] MEDS: GABAPENTIN 300 MG CAPSULE (FP) PO SCH ×3 (07:09→23:07)
[2017-05-08] MEDS: FLUTICASONE PROP 0.05% 16 GM NASAL SPRAY NS SCH ×2 (10:34→23:07)
[2017-05-08] MEDS: PRENATAL VITAMINS W/ FOLIC ACID TABLET (FP) PO SCH (10:34)
[2017-05-08] MEDS: NICOTINE 14 MG/24 HOURS TOPICAL PATCH TD SCH (10:34)
[2017-05-08] MEDS: LORATADINE 10 MG TABLET PO SCH (10:34)
[2017-05-08] MEDS: BACITRACIN 15 GM TUBE TOPICAL OINTMENT TP SCH ×2 (10:34→23:06)
[2017-05-08] MEDS: THIAMINE HCL 100 MG TABLET (FP) PO SCH (23:07)
[2017-05-08] MEDS: AMITRIPTYLINE HCL 25 MG TABLET (FP) PO SCH (23:07)
[2017-05-08] MEDS: hydrOXYzine PAMOATE 50 MG CAPSULE (FP) PO PRN (23:56)
[2017-05-08] MEDS: QUEtiapine FUMARATE 25 MG TABLET (FP) PO PRN (23:56)
[2017-05-09] MEDS: busPIRone HCL 5 MG TABLET PO SCH ×3 (07:09→21:16)
[2017-05-09] MEDS: GABAPENTIN 300 MG CAPSULE (FP) PO SCH ×3 (07:09→21:16)
[2017-05-09] MEDS: CYCLOBENZAPRINE HCL 5 MG TABLET PO SCH ×3 (07:09→21:16)
[2017-05-09] MEDS: PRENATAL VITAMINS W/ FOLIC ACID TABLET (FP) PO SCH (10:07)
[2017-05-09] MEDS: NICOTINE 14 MG/24 HOURS TOPICAL PATCH TD SCH (10:07)
[2017-05-09] MEDS: LORATADINE 10 MG TABLET PO SCH (10:07)
[2017-05-09] MEDS: SODIUM CHLORIDE NASAL SPRAY 44 ML BOTTLE NS PRN (10:08)
[2017-05-09] MEDS: BACITRACIN 15 GM TUBE TOPICAL OINTMENT TP SCH ×2 (10:08→21:16)
[2017-05-09] MEDS: FLUTICASONE PROP 0.05% 16 GM NASAL SPRAY NS SCH ×2 (10:09→21:18)
[2017-05-09] MEDS: COLLOIDAL OATMEAL 1 BAR EACH TP PRN (13:22)
[2017-05-09] MEDS: IBUPROFEN 400 MG TABLET (FP) PO PRN (21:16)
[2017-05-09] MEDS: AMITRIPTYLINE HCL 25 MG TABLET (FP) PO SCH (21:16)
[2017-05-09] MEDS: hydrOXYzine PAMOATE 50 MG CAPSULE (FP) PO PRN (21:16)
[2017-05-09] MEDS: THIAMINE HCL 100 MG TABLET (FP) PO SCH (21:16)
[2017-05-09] MEDS: QUEtiapine FUMARATE 25 MG TABLET (FP) PO PRN (21:16)
[2017-05-10] MEDS: CYCLOBENZAPRINE HCL 5 MG TABLET PO SCH ×3 (06:07→21:18)
[2017-05-10] MEDS: busPIRone HCL 5 MG TABLET PO SCH ×3 (06:07→21:18)
[2017-05-10] MEDS: GABAPENTIN 300 MG CAPSULE (FP) PO SCH ×3 (07:06→21:18)
[2017-05-10] MEDS: BACITRACIN 15 GM TUBE TOPICAL OINTMENT TP SCH ×2 (09:55→21:18)
[2017-05-10] MEDS: FLUTICASONE PROP 0.05% 16 GM NASAL SPRAY NS SCH ×2 (09:55→21:18)
[2017-05-10] MEDS: PRENATAL VITAMINS W/ FOLIC ACID TABLET (FP) PO SCH (09:55)
[2017-05-10] MEDS: LORATADINE 10 MG TABLET PO SCH (09:55)
[2017-05-10] MEDS: IBUPROFEN 400 MG TABLET (FP) PO PRN (09:57)
[2017-05-10] MEDS: NICOTINE 14 MG/24 HOURS TOPICAL PATCH TD SCH (10:27)
[2017-05-10] MEDS: QUEtiapine FUMARATE 25 MG TABLET (FP) PO PRN (21:18)
[2017-05-10] MEDS: AMITRIPTYLINE HCL 25 MG TABLET (FP) PO SCH (21:18)
[2017-05-10] MEDS: THIAMINE HCL 100 MG TABLET (FP) PO SCH (21:18)
[2017-05-10] MEDS: hydrOXYzine PAMOATE 50 MG CAPSULE (FP) PO PRN (21:18)
[2017-05-11] MEDS: busPIRone HCL 5 MG TABLET PO SCH (06:13)
[2017-05-11] MEDS: GABAPENTIN 300 MG CAPSULE (FP) PO SCH (06:13)
[2017-05-11] MEDS: CYCLOBENZAPRINE HCL 5 MG TABLET PO SCH (06:13)
[2017-05-11 07:16] VITALS: BP 110/73; PULSE 96; TEMP 97.7
--- NOTE | 2017-05-11 10:05 | PN ---
Psychiatric Progress Note Vital Signs: Vital Signs Period Temp Pulse Resp BP Sys/Sánchez Pulse Ox Last 24 Hr 97.7 F 96 16-16 110/73 Date of Session: 05/11/17 Chief Complaint:: Discharge visit HPI: Patient addressed Opioid and Cocaine dependence comorbid with ROS: Hep C. Current Medications: Active Medications Generic Name Dose Route Start Last Admin Trade Name Freq PRN Reason Stop Dose Admin Acetaminophen 650 mg 04/14/17 15:27 Tylenol - PO Q4H PRN FEVER OR PAIN Al Hydroxide/Mg Hydroxide 30 ml 04/14/17 15:27 Mylanta Oral Suspension - PO Q6H PRN DYSPEPSIA Albuterol Sulfate 2 puff 05/05/17 09:44 Ventolin Hfa Inhaler - IH Q4H PRN SHORT OF BREATH/WHEEZING Amitriptyline HCl 75 mg 04/28/17 22:00 05/10/17 21:18 Elavil - PO 75 mg HS ROBERT Administration Bacitracin 1 applic 04/18/17 10:00 05/10/17 21:18 Bacitracin - TP Not Given BID ROBERT Buspirone HCl 5 mg 04/28/17 14:00 05/11/17 06:13 Buspar - PO 5 mg TID ROBERT Administration Colloidal Oatmeal 1 applic 04/19/17 10:59 05/09/17 13:22 Aveeno Soap - TP 1 applic DAILY PRN Administration HYGEINE Cyclobenzaprine HCl 5 mg 04/15/17 14:00 05/11/17 06:13 Cyclobenzaprine Hcl PO 5 mg TID ROBERT Administration Eucalyptus/Menthol/Phenol/Sorbitol 1 each 04/14/17 15:27 Cepastat Lozenge - MM Q4H PRN SORE THROAT Fluticasone Propionate 1 spray 05/04/17 12:15 05/10/17 21:18 Flonase - NS Not Given BID ROBERT Gabapentin 600 mg 04/21/17 14:57 05/11/17 06:13 Neurontin - PO 600 mg TID ROBERT Administration Guaifenesin 10 ml 04/14/17 15:27 Robitussin Dm - PO Q6H PRN COUGH Hydroxyzine Pamoate 50 mg 04/14/17 15:27 05/10/17 21:18 Vistaril - PO 50 mg Q4H PRN Administration AGITATION Ibuprofen 400 mg 04/14/17 15:27 05/10/17 09:57 Motrin - PO 400 mg Q6H PRN Administration PAIN Loperamide HCl 4 mg 04/14/17 15:27 Imodium - PO Q6H PRN DIARRHEA Loratadine 10 mg 05/04/17 12:15 05/10/17 09:55 Claritin - PO 10 mg DAILY ROBERT Administration Magnesium Citrate 300 ml 04/14/17 15:27 Citroma - PO Q48H PRN CONSTIPATION Magnesium Hydroxide 30 ml 04/14/17 15:27 Milk Of Magnesia - PO DAILY PRN CONSTIPATION Nicotine 14 mg 04/15/17 10:00 05/10/17 10:27 Nicoderm Patch - TD Not Given DAILY ROBERT Nicotine Polacrilex 2 mg 04/14/17 15:27 04/26/17 14:37 Nicorette Gum - BUC 2 mg Q2H PRN Administration NICOTINE REPLACEMENT RX Multivit/Folic Acid/Iron 1 tab 04/15/17 10:00 05/10/17 09:55 Vitamins (Sjr) - PO 1 tab DAILY ROBERT Administration Pseudoephedrine/Triprolidine 1 combo 04/14/17 15:27 05/03/17 10:43 Actifed - PO 1 combo TID PRN Administration NASAL CONGESTION Quetiapine Fumarate 25 mg 04/17/17 10:11 05/10/17 21:18 Seroquel - PO 25 mg Q4H PRN Administration AGITATION Sodium Chloride 2 spray 05/04/17 11:39 05/09/17 10:08 [place] Nasal [place] - NS 2 spray TID PRN Administration NASAL CONGESTION Thiamine HCl 100 mg 04/14/17 22:00 05/10/17 21:18 Vitamin B1 - PO 100 mg HS ROBERT Administration Current Side Effect: No Lab tests ordered: No Lab tests reviewed: Yes Provider note:: Patient completed this program today.He has met his treatment goals and will continue to address his issues on otpatient basis at [facility].Patient reports finding that Buspar 5 mg po tid, Neurontin 600 mg po tid and Elavil 75 mg po hs help to cope with mood instability,anxiety,insonia.scripts for 30 days supply provided. Supportive therapy provided focusing on insight gaining in treatment.Coping skills,support utilization to maintain recovery has been discussed with the patient. He is stable for discharge today. Total face to face time:: 30 Mental Status Exam - Mental Status Exam Alert and Oriented to: Time, Place, Person Cognitive Function: Grossly Intact Patient Appearance: Well Groomed Mood: Euthymic Patient Behavior: Cooperative Speech Pattern: Clear Voice Loudness: Normal Thought Process: Goal Oriented Thought Disorder: Not Present Hallucinations: Denies Suicidal Ideation: Denies Homicidal Ideation: Denies Insight/Judgement: Fair Sleep: Fair Appetite: Good Muscle strength/Tone: Normal Gait/Station: Normal Psychiatric Treatment Plan - Problem List (7) Nicotine dependence Qualifiers: Nicotine product type: cigarettes Substance use status: uncomplicated Qualified Code(s): F17.210 - Nicotine dependence, cigarettes, uncomplicated
[2017-05-11] MEDS: LORATADINE 10 MG TABLET PO SCH (10:38)
[2017-05-11] MEDS: FLUTICASONE PROP 0.05% 16 GM NASAL SPRAY NS SCH (10:38)
[2017-05-11] MEDS: BACITRACIN 15 GM TUBE TOPICAL OINTMENT TP SCH (10:38)
[2017-05-11] MEDS: PRENATAL VITAMINS W/ FOLIC ACID TABLET (FP) PO SCH (10:39)
[2017-05-11] MEDS: NICOTINE 14 MG/24 HOURS TOPICAL PATCH TD SCH (10:39)
== END 2017-05-11 10:40 | disposition home or self-care (01) | DRG 772 ==
LOC: YASAS 12:47 → Y5N 12:48
PROVIDERS: ADMIT Psychiatry & Neurology Psychiatry; ATTEND Psychiatry & Neurology Psychiatry
PROC: HZ42ZZZ Group Counseling for Substance Abuse Treatment, Cognitive-Behavioral (ICD-10-PCS; principal; 2017-04-14)
DX: F11.20 Opioid dependence, uncomplicated (principal); F14.20 Cocaine dependence, uncomplicated; F12.20 Cannabis dependence, uncomplicated; F17.210 Nicotine dependence, cigarettes, uncomplicated; F19.24 Other psychoactive substance dependence with psychoactive substance-induced mood disorder; F43.10 Post-traumatic stress disorder, unspecified; F41.9 Anxiety disorder, unspecified; J31.0 Chronic rhinitis; B18.2 Chronic viral hepatitis C; Z59.0 Homelessness